=== PATIENT | female | born 1975 | race Caucasian/White ===

== ENCOUNTER 2019-10-07 17:51 | Emergency (ER) | payer MEDICARE ==
[~2019-10-07] VITALS: Ht 167.6 cm; Wt 75.0 kg
[2019-10-07 17:53] VITALS: BP 119/79
== END 2019-10-07 18:32 | disposition left against medical advice (07) ==
LOC: ER 17:51
DX: Z53.21 Procedure and treatment not carried out due to patient leaving prior to being seen by health care provider (principal)

== ENCOUNTER 2020-03-09 23:18 | Emergency (ER) | payer SELFPAY ==
[~2020-03-09] VITALS: Ht 162.6 cm; Wt 89.0 kg
[2020-03-09 23:20] VITALS: BP 150/90
[2020-03-09] MEDS ORDERED: BACITRACIN ZINC OINT UDPKT TOP ONE (23:45)
[2020-03-09] MEDS ORDERED: LIDOCAINE 1%/EPI 1:100,000 10 ML VIAL IJ ONE (23:45)
[2020-03-09] MEDS ORDERED: TETANUS, DIPHTHERIA, PERTUSSIS VAC/PF 0.5ML (>7YR OLD) IM ONE (23:45)
== END 2020-03-10 00:16 | disposition left against medical advice (07) ==
LOC: ER 23:18
DX: S01.81XA Laceration without foreign body of other part of head, initial encounter (principal); Y08.89XA Assault by other specified means, initial encounter; Y93.89 Activity, other specified; Y92.89 Other specified places as the place of occurrence of the external cause; Y99.8 Other external cause status
CPT/HCPCS: 99283

== ENCOUNTER 2022-03-05 16:43 | Emergency (ER) | payer OTHER ==
[~2022-03-05] VITALS: Ht 175.3 cm; Wt 115.0 kg
[2022-03-05 16:56] VITALS: BP 145/72
[2022-03-05] MEDS ORDERED: FLUORESCEIN SODIUM 1MG/STRIP BOTHEYE ONE (18:30)
[2022-03-05] MEDS ORDERED: TETRACAINE 0.5% OPHTH DROPS 4ML BOTHEYE ONE (18:30)
== END 2022-03-05 20:32 ==
LOC: ER 16:43
DX: Z77.098 Contact with and (suspected) exposure to other hazardous, chiefly nonmedicinal, chemicals (principal)
CPT/HCPCS: 99283